=== PATIENT | female | born 1990 | race Hispanic/Latino ===

== ENCOUNTER 2024-02-18 12:31 | Emergency (ER) | payer OTHER ==
[~2024-02-18] VITALS: Ht 165.1 cm; Wt 81.7 kg
[2024-02-18 12:42] VITALS: PULSE 90; RESP 18; TEMP 98.7; O2SAT 99
[2024-02-18] MEDS ORDERED: ONDANSETRON HCL INJ 2MG/ML 2ML 2 MG/ML VIAL IV STA (12:54)
[2024-02-18] MEDS ORDERED: KETOROLAC TROMETHAMINE 30 MG/ML VIAL IV ONE (13:15)
[2024-02-18] MEDS ORDERED: SODIUM CHLORIDE 0.9% 1000ML 1,000 ML IV SCH (13:15)
[2024-02-18] MEDS ORDERED: LEXAPRO20 MG PO (18:26)
[2024-02-18] MEDS ORDERED: KETOROLAC TROMETHAMINE 30 MG/ML VIAL ONE (20:22)
[2024-02-18] MEDS ORDERED: ONDANSETRON HCL INJ 2MG/ML 2ML 2 MG/ML VIAL ONE (20:22)
[2024-02-18] MEDS ORDERED: NAPROXEN500 M1 PO (23:18)
[2024-02-18] MEDS ORDERED: ONDANSETRON ODT4 MG PO (23:18)
[2024-02-18] MEDS ORDERED: DICYCLOMINE HCL20 MG PO (23:18)
== END 2024-02-18 13:03 | disposition home or self-care (01) ==
LOC: FSED 12:42
DX: R10.31 Right lower quadrant pain (principal); R19.7 Diarrhea, unspecified; F41.9 Anxiety disorder, unspecified
CPT/HCPCS: 81003; 81025; 99283; J1885; J2405

== ENCOUNTER 2024-02-18 19:15 | Emergency (ER) | payer OTHER ==
[~2024-02-18] VITALS: Ht 165.1 cm; Wt 81.6 kg
[~2024-02-18 19:15] MED LIST: LEXAPRO20 MG PO
[2024-02-18 19:25] VITALS: PULSE 70; RESP 18; TEMP 98.7
[2024-02-18] MEDS: KETOROLAC TROMETHAMINE 30 MG/ML VIAL IV STA (20:23)
[2024-02-18] MEDS: ONDANSETRON HCL INJ 2MG/ML 2ML 2 MG/ML VIAL IV STA (20:23)
[2024-02-18] MEDS ORDERED: IOPAMIDOL 370 MG/ML 100 ML INFUS..BTL INJ ONE (21:14)
[2024-02-18] MEDS ORDERED: ONDANSETRON ODT4 MG PO (23:18)
[2024-02-18] MEDS ORDERED: NAPROXEN500 M1 PO (23:18)
[2024-02-18] MEDS ORDERED: DICYCLOMINE HCL20 MG PO (23:18)
[2024-02-18 23:23] VITALS: BP 108/84; PULSE 84; RESP 18; TEMP 98.3; O2SAT 99
== END 2024-02-18 23:23 | disposition home or self-care (01) ==
LOC: FSED 19:19
DX: R10.31 Right lower quadrant pain (principal); R19.7 Diarrhea, unspecified
CPT/HCPCS: 74177; 80053; 80076; 81025; 85025; 99284; J1885; Q9967